=== PATIENT | female | born 1975 | race Caucasian/White ===

== ENCOUNTER 2018-01-15 02:55 | Emergency (ER) | payer OTHER ==
[~2018-01-15] VITALS: Ht 165.1 cm; Wt 97.0 kg
[2018-01-15 02:57] VITALS: BP 180/111
[2018-01-15] MEDS ORDERED: ALBUTEROL/IPRATROPIUM 2.5MG/0.5MG, 3 ML ONE (03:30)
[2018-01-15] MEDS: ALBUTEROL/IPRATROPIUM 2.5MG/0.5MG, 3 ML NPPB SCH ×2 (03:38→04:18)
[2018-01-15 03:47] LABS: ALBUMIN 3.2 g/dL (3.4-5.0); ANION GAP 9 mmol/L (5-15); CALCIUM 8.6 mg/dL (8.5-10.1); CHLORIDE 109 mmol/L (98-107); CREATININE 0.76 mg/dL (0.55-1.02)
[2018-01-15 03:48] LABS: MEAN CORPUSCULAR HGB CONC 33.9 g/dL (32.4-35.8); MEAN CORPUSCULAR VOLUME 91.4 fL (80-100); MEAN PLATELET VOLUME 7.9 fL (7.4-10.4); PLATELET COUNT 292 x10^3/uL (130-400); RED BLOOD COUNT 4.75 x10^6/uL (3.82-5.3); RED CELL DISTRIBUTION WIDTH 13.3 % (9.6-15.2)
[2018-01-15 03:50] LABS: TROPONIN I 0.015 ng/mL (0.000-0.045)
[2018-01-15 04:15] LABS: BASOPHILS # (AUTO) 0.12 x10^3/uL (0-0.1); BASOPHILS % (AUTO) 1 % (0-1); EOSINOPHILS # (AUTO) 1.83 x10^3/uL (0-0.4); EOSINOPHILS % (AUTO) 14 % (1-7); LYMPHOCYTES # (AUTO) 2.73 x10^3/uL (1-3.4); LYMPHOCYTES % (AUTO) 21 % (22-44); MD SCAN; MONOCYTES # (AUTO) 0.89 x10^3/uL (0.2-0.8); MONOCYTES % (AUTO) 7 % (2-9); NEUTROPHILS # (AUTO) 7.44 x10^3/uL (1.8-6.8); NEUTROPHILS % (AUTO) 57 % (42-75)
[2018-01-15] MEDS ORDERED: ALBUTEROL/IPRATROPIUM 2.5MG/0.5MG, 3 ML NPPB SCH (05:30)
== END 2018-01-15 05:29 | disposition home or self-care (01) ==
LOC: ED 05:20
DX: J45.31 Mild persistent asthma with (acute) exacerbation (principal); J20.9 Acute bronchitis, unspecified; I10 Essential (primary) hypertension; F17.200 Nicotine dependence, unspecified, uncomplicated
CPT/HCPCS: 36415; 71046; 80048; 82040; 83880; 84484; 85025; 93005; 94640; 99285; 99406; J7512; J7620

== ENCOUNTER 2018-08-11 21:04 | Emergency (ER) | payer OTHER ==
[~2018-08-11] VITALS: Ht 165.1 cm; Wt 79.8 kg
[2018-08-11] MEDS ORDERED: ACETAMINOPHEN 500 MG TABLET ONE (21:44)
[2018-08-11] MEDS ORDERED: IBUPROFEN 200 MG TABLET ONE (21:44)
[2018-08-11] MEDS ORDERED: ACETAMINOPHEN 500 MG TABLET PO ONE (22:00)
[2018-08-11] MEDS ORDERED: IBUPROFEN 200 MG TABLET PO ONE (22:00)
[2018-08-11 22:03] LABS: RAPID INFLUENZA A Negative (Negative); RAPID INFLUENZA B Negative (Negative)
[2018-08-11 22:17] LABS: BASOPHILS % (AUTO) 0 % (0-1); EOSINOPHILS % (AUTO) 0 % (1-7); LYMPHOCYTES # (AUTO) 0.29 x10^3/uL (1-3.4); LYMPHOCYTES % (AUTO) 7 % (22-44); MD NO; MEAN CORPUSCULAR HEMOGLOBIN 31.9 pg (27.0-34.8); MEAN CORPUSCULAR HGB CONC 34.7 g/dL (32.4-35.8); MEAN CORPUSCULAR VOLUME 92.1 fL (80-100); MEAN PLATELET VOLUME 7.9 fL (7.4-10.4); MONOCYTES # (AUTO) 0.32 x10^3/uL (0.2-0.8); MONOCYTES % (AUTO) 8 % (2-9); NEUTROPHILS # (AUTO) 3.71 x10^3/uL (1.8-6.8); NEUTROPHILS % (AUTO) 86 % (42-75); PLATELET COUNT 176 x10^3/uL (130-400); RED BLOOD COUNT 3.99 x10^6/uL (3.82-5.3); RED CELL DISTRIBUTION WIDTH 13.9 % (9.6-15.2)
[2018-08-11 22:40] LABS: HCG UR SG 1.005 (1.003-1.030); MICROSCOPIC INDICATED
[2018-08-11 23:18] VITALS: BP 148/86
== END 2018-08-11 23:19 | disposition home or self-care (01) ==
LOC: ED 22:59
DX: J45.41 Moderate persistent asthma with (acute) exacerbation (principal); N93.8 Other specified abnormal uterine and vaginal bleeding; I10 Essential (primary) hypertension; Z87.891 Personal history of nicotine dependence
CPT/HCPCS: 36415; 71046; 81001; 81025; 85025; 87400; 99284

== ENCOUNTER 2020-09-16 13:19 | Emergency (ER) | payer OTHER ==
[~2020-09-16] VITALS: Ht 165.1 cm; Wt 89.5 kg
--- NOTE | 2020-09-16 13:57 | NUR ---
[facility] END: PT AMBULATORY TO ROOM FROM LOBBY
[2020-09-16 14:03] VITALS: BP 172/81
[2020-09-16] MEDS ORDERED: CYAN1TAB43 PO (14:03)
[2020-09-16] MEDS ORDERED: FLUT12AE INH (14:03)
[2020-09-16] MEDS ORDERED: LOSA50TA14 PO (14:03)
[2020-09-16] MEDS ORDERED: NORE5TAB12 PO (14:03)
[2020-09-16] MEDS ORDERED: BUPR200T3 PO (14:03)
[2020-09-16] MEDS ORDERED: ALPR1TAB2 PO (14:03)
--- NOTE | 2020-09-16 14:18 | NUR ---
[facility] AT BEDSIDE. PT ASSESSMENT AND POC DISCUSSED AND QUESTIONS ANSWERED.
--- NOTE | 2020-09-16 14:38 | NUR ---
Patient/Caregiver given discharge instructions and they have confirmed that they understand the instructions. Patient ambulatory with steady gait.
== END 2020-09-16 14:40 | disposition home or self-care (01) ==
LOC: ED 14:34
DX: F41.1 Generalized anxiety disorder (principal); Z76.0 Encounter for issue of repeat prescription; I10 Essential (primary) hypertension; J45.909 Unspecified asthma, uncomplicated; F17.200 Nicotine dependence, unspecified, uncomplicated
CPT/HCPCS: 99281